=== PATIENT | female | born 1965 | race Hispanic/Latino ===

== ENCOUNTER 2017-10-03 09:51 | Emergency (ER) | payer SELFPAY ==
[2017-10-03] MEDS ORDERED: Cyclobenzaprine 10 MG TAB ONE (10:17)
[2017-10-03] MEDS ORDERED: Ketorolac Tromethamine 60 MG/2 ML VIAL ONE (10:17)
--- NOTE | 2017-10-03 13:01 | RAD ---
LEFT FOOT THREE VIEWS: INDICATIONS: Left foot pain. COMPARISON: None. FINDINGS: No acute fracture or subluxation is evident. A small accessory ossicle is seen adjacent to the navic jose and cuboid. Lisfranc alignment is preserved. IMPRESSION: No acute osseous abnormality. POS: [facility]
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
== END 2017-10-03 12:36 | disposition home or self-care (01) ==
LOC: ERS 09:51
DX: S20.212A Contusion of left front wall of thorax, initial encounter (principal); S90.32XA Contusion of left foot, initial encounter; S80.212A Abrasion, left knee, initial encounter; S90.512A Abrasion, left ankle, initial encounter; V43.52XA Car driver injured in collision with other type car in traffic accident, initial encounter
CPT/HCPCS: 71046; 96372; J1885

== ENCOUNTER 2018-09-23 10:02 | Outpatient (CLI) | payer OTHER ==
--- NOTE | 2018-09-23 11:26 | MMO ---
Bilateral MAMMO Bilat Screen DDI+JOVANNY. CLINICAL HISTORY: Patient is 53 years old and is seen for screening. The patient has no family history of breast cancer. The patient has no personal history of cancer. The patient has a history of Implants in 2000. VIEWS: The views performed were: bilateral craniocaudal with tomosynthesis and bilateral mediolateral oblique with tomosynthesis. MAMMOGRAM FINDINGS: The breasts are heterogeneously dense, which could obscure a lesion on mammography. Finding 1: Normal implants are present. Finding 2: There is a focal asymmetry seen in the sub-areolar region of the right breast. IMPRESSION: FINDING 1: IMPLANT FINDINGS IN BOTH BREASTS ARE BENIGN. FINDING 2: FOCAL ASYMMETRY IN THE RIGHT BREAST REQUIRES ADDITIONAL EVALUATION. AN ULTRASOUND EXAM IS RECOMMENDED. THE RESULTS OF THIS EXAM WERE SENT TO THE PATIENT. ACR BI-RADS Category 0 - Incomplete: Need additional imaging evaluation. [facility] will notify the patient of the need for additional imaging services. MAMMOGRAPHY NOTE: 1. A negative mammogram report should not delay a biopsy if a dominant of clinically suspicious mass is present. 2. Approximately 10% to 15% of breast cancers are not detected by mammography. 3. Adenosis and dense breasts may obscure an underlying neoplasm.
== END 2018-09-23 10:03 | disposition home or self-care (01) ==
LOC: BICMAMMO 10:02
PROVIDERS: ATTEND Nurse Practitioner Family
DX: Z12.31 Encounter for screening mammogram for malignant neoplasm of breast (principal); Z01.419 Encounter for gynecological examination (general) (routine) without abnormal findings; N64.89 Other specified disorders of breast; Z98.82 Breast implant status
CPT/HCPCS: 77063; 77067

== ENCOUNTER 2018-09-26 12:09 | Outpatient (CLI) | payer OTHER ==
--- NOTE | 2018-09-26 13:29 | MMO ---
Right Breast MAMMO Unilat Diag DDI RT+JOVANNY. CLINICAL HISTORY: Patient is 53 years old and is seen for diagnostic exam. The patient has no family history of breast cancer. The patient has no personal history of cancer. The patient has a history of Implants in 2000. VIEWS: The views performed were: right craniocaudal spot compression with tomosynthesis; right mediolateral oblique spot compression with tomosynthesis; right mediolateral; and right mediolateral spot compression with tomosynthesis. FILMS COMPARED: The present examination has been compared to a prior imaging study performed at [facility] on 09/23/2018. MAMMOGRAM FINDINGS: The breast is heterogeneously dense, which could obscure a lesion on mammography. There are benign appearing calcifications seen in the right breast. No evidence of mass or distortion on diagnostic exam with tomosynthesis. Recommend 6 month follow up to confirm stability. IMPRESSION: CALCIFICATIONS IN THE RIGHT BREAST ARE PROBABLY BENIGN. FOLLOW-UP IN 6 MONTHS IS RECOMMENDED. THE RESULTS OF THIS EXAM WERE SENT TO THE PATIENT. ACR BI-RADS Category 3 - Probably benign finding - short interval follow-up suggested. [facility] will notify the patient of the need for additional imaging services. MAMMOGRAPHY NOTE: 1. A negative mammogram report should not delay a biopsy if a dominant of clinically suspicious mass is present. 2. Approximately 10% to 15% of breast cancers are not detected by mammography. 3. Adenosis and dense breasts may obscure an underlying neoplasm.
== END 2018-09-26 12:10 | disposition home or self-care (01) ==
LOC: BICMAMMO 12:09
PROVIDERS: ATTEND Nurse Practitioner Family
DX: R92.2 Inconclusive mammogram (principal); R92.1 Mammographic calcification found on diagnostic imaging of breast; Z98.82 Breast implant status
CPT/HCPCS: G0279

== ENCOUNTER 2019-03-06 14:34 | Outpatient (CLI) | payer OTHER ==
--- NOTE | 2019-03-06 15:56 | MMO ---
Right Breast MAMMO Unilat Diag DDI RT+JOVANNY. CLINICAL HISTORY: Patient is 53 years old and is seen for follow-up at short-interval from prior study. The patient has no family history of breast cancer. The patient has no personal history of cancer. The patient has a history of Implants in 2000. VIEWS: The views performed were: right craniocaudal spot compression magnification; right mediolateral; right mediolateral spot compression magnification; right mediolateral with tomosynthesis; and right Implant displaced. FILMS COMPARED: The present examination has been compared to prior imaging studies performed at [facility] on 09/23/2018, 09/26/2018 and 03/06/2019. This study has been interpreted with the assistance of computer-aided detection. MAMMOGRAM FINDINGS: There are scattered fibroglandular densities. There is an oval mass measuring 17 millimeters with associated coarse popcorn-like calcifications seen in the anterior region of the right breast at 9 o'clock. Ultrasound shows solid mass. 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 IMPRESSION: MASS IN THE RIGHT BREAST IS PROBABLY BENIGN. FOLLOW-UP IN 6 MONTHS IS RECOMMENDED. THE RESULTS OF THIS EXAM WERE SENT TO THE PATIENT. ACR BI-RADS Category 3 - Probably benign finding - short interval follow-up suggested. [facility] will notify the patient of the need for additional imaging services. MAMMOGRAPHY NOTE: 1. A negative mammogram report should not delay a biopsy if a dominant of clinically suspicious mass is present. 2. Approximately 10% to 15% of breast cancers are not detected by mammography. 3. Adenosis and dense breasts may obscure an underlying neoplasm. Reported by: MARNI KINNEY MD Electonically Signed: [id number]
--- NOTE | 2019-03-06 15:59 | ULT ---
ULTRASOUND RIGHT BREAST LIMITED: 03/06/19 HISTORY: 53-year-old female with right breast mass. TECHNIQUE: Focused ultrasound of the 9 o'clock of the retroareolar region. FINDINGS: 1 cm from the nipple, at the 9 o'clock position, there is a wider than tall, mildly macrolobulated, h ypoechoic solid mass measuring approximately 2.1 x 0.7 x 2.1 cm. It contains a few macrocalcification s (best demonstrated on the mammogram), highly suggestive of a degenerating fibroadenoma. Ultrasound guided percutaneous biopsy may be risky because of the close proximity of the breast implant. The patient first presented for a bilateral screening mammogram on 09/23/18, when this mass was first d iscovered and described as an asymmetry. Additional mammographic views and ultrasound were recommende d at that time. However, an ultrasound was not performed at that time. Instead, additional views were performed, on . Benign calcification were noted within the asymmetry. Six month follow-up was recommended for the asymmetry. The current ultrasound is the first ultrasound of the right breast that the patient has had. IMPRESSION: 1. BIRADS 3: Probably Benign Finding Initial Short-Interval Follow-Up Suggested [Initial short-term follow up (usually 6-month) examination.] 2. An approximately 2 cm solid mass in the far anterior, periareolar right breast at the 9 o'nils ck position is highly likely to represent a fibroadenoma. 3. Recommend serial follow-up right mammograms and serial follow-up right breast ultrasounds at 6 months, one year, and two years. POS: [facility]
== END 2019-03-06 14:35 | disposition home or self-care (01) ==
LOC: BICMAMMO 14:34
PROVIDERS: ATTEND Internal Medicine Gastroenterology
DX: R92.8 Other abnormal and inconclusive findings on diagnostic imaging of breast (principal); N63.13 Unspecified lump in the right breast, lower outer quadrant
CPT/HCPCS: G0279

== ENCOUNTER 2019-09-03 13:33 | Outpatient (CLI) | payer OTHER ==
--- NOTE | 2019-09-03 15:18 | MMO ---
Bilateral MAMMO Bilat Diag DDI+JOVANNY. CLINICAL HISTORY: Patient is 54 years old and is seen for follow-up at short-interval from prior study. The patient has no family history of breast cancer. The patient has no personal history of cancer. The patient has a history of Implants in 2000. VIEWS: The views performed were: bilateral craniocaudal with tomosynthesis; bilateral mediolateral oblique with tomosynthesis; and bilateral mediolateral with tomosynthesis. FILMS COMPARED: The present examination has been compared to prior imaging studies performed at [facility] on 09/26/2018, 03/06/2019 and 09/03/2019. This study has been interpreted with the assistance of computer-aided detection. MAMMOGRAM FINDINGS: There are scattered fibroglandular densities. There is a stable lobular mass with associated coarse popcorn-like calcifications seen in the anterior region of the right breast at 9 o'clock. In the left breast, there are no suspicious masses, calcifications or areas of architectural distortion. IMPRESSION: STABLE MASS IN THE RIGHT BREAST IS PROBABLY BENIGN. FOLLOW-UP IN 6 MONTHS IS RECOMMENDED. THE RESULTS OF THIS EXAM WERE SENT TO THE PATIENT. ACR BI-RADS Category 3 - Probably benign finding - short interval follow-up suggested. [facility] will notify the patient of the need for additional imaging services. MAMMOGRAPHY NOTE: 1. A negative mammogram report should not delay a biopsy if a dominant of clinically suspicious mass is present. 2. Approximately 10% to 15% of breast cancers are not detected by mammography. 3. Adenosis and dense breasts may obscure an underlying neoplasm. Reported by: ANGELINE SANCHEZ MD Electonically Signed: [id number]
--- NOTE | 2019-09-03 18:15 | ULT ---
FOCUSED ULTRASOUND OF THE RIGHT BREAST: 09/03/19 COMPARISON: 03/06/19. HISTORY: Re-evaluate solid mass at the 9 o'clock position of the right breast. FINDINGS: Focused ultrasound at the 9 o'clock position of the right breast approximately 1 cm from the nipple a gain demonstrates a macrolobulated solid hypoechoic lesion with internal coarse calcification measuri ng 2.1 x 0.7 x 1.0 cm, unchanged when compared to the prior examination. Its sonographic and mammogra phic appearance are most consistent with a benign fibroadenoma. IMPRESSION: BIRADS 3: Probably Benign Finding Initial Short-Interval Follow-Up Suggested Initial short-term follow up (usually 6-month) examination. Recommend bilateral mammography and foc used breast ultrasound in 6 months, February 2020.
== END 2019-09-03 13:34 | disposition home or self-care (01) ==
LOC: BICMAMMO 13:33
PROVIDERS: ATTEND Nurse Practitioner Family
DX: R92.8 Other abnormal and inconclusive findings on diagnostic imaging of breast (principal); N63.10 Unspecified lump in the right breast, unspecified quadrant
CPT/HCPCS: 77066; G0279

== ENCOUNTER 2020-03-02 10:28 | Outpatient (CLI) | payer OTHER ==
--- NOTE | 2020-03-02 11:38 | MMO ---
Right Breast MAMMO Unilat Diag DDI RT+JOVANNY. CLINICAL HISTORY: Patient is 54 years old and is seen for follow-up at short-interval from prior study. The patient has no family history of breast cancer. The patient has no personal history of cancer. The patient has a history of Implants in 2000. VIEWS: The views performed were: right craniocaudal; right craniocaudal with tomosynthesis; right mediolateral oblique; right mediolateral oblique with tomosynthesis; right mediolateral; and right mediolateral with tomosynthesis. FILMS COMPARED: The present examination has been compared to prior imaging studies performed at [facility] on 03/06/2019, 09/03/2019 and 03/02/2020. This study has been interpreted with the assistance of computer-aided detection. MAMMOGRAM FINDINGS: There are scattered fibroglandular densities. There are benign appearing calcifications in the right breast. Mass with coarse calcs at 9:00 is stable and consistent with fibroadenoma. IMPRESSION: FINDING IN THE RIGHT BREAST IS PROBABLY BENIGN. FOLLOW-UP IN 6 MONTHS IS RECOMMENDED. THE RESULTS OF THIS EXAM WERE SENT TO THE PATIENT. ACR BI-RADS Category 3 - Probably benign finding - short interval follow-up suggested. [facility] will notify the patient of the need for additional imaging services. MAMMOGRAPHY NOTE: 1. A negative mammogram report should not delay a biopsy if a dominant of clinically suspicious mass is present. 2. Approximately 10% to 15% of breast cancers are not detected by mammography. 3. Adenosis and dense breasts may obscure an underlying neoplasm. Reported by: KAVON MIDDLETON MD Electonically Signed: [id number]
--- NOTE | 2020-03-02 18:47 | ULT ---
LIMITED RIGHT BREAST ULTRASOUND: 03/02/20 HISTORY: Follow-up exam. FINDINGS: Comparison is made with the ultrasound of 09/03/19 and correlation is made with the mammograms of gonzález hernandez and 09/03/19. Focused ultrasound of the 9 o'clock position of the right breast 1 cm from the nipple redemonstrates the macrolobulated solid hypoechoic mass with internal coarse calcifications which remains stable and measures 2.1 x 0.7 x 1 cm. This is consistent with a benign fibroadenoma. IMPRESSION: BIRADS 3: Probably Benign Finding Initial Short-Interval Follow-Up Suggested Initial short-term follow up (usually 6-month) examination. Six month follow-up ultrasound is recommended with diagnostic right mammogram and bilateral screening mammograms in August 2020. POS: [facility]
== END 2020-03-02 10:29 | disposition home or self-care (01) ==
LOC: BICMAMMO 10:28
PROVIDERS: ATTEND Nurse Practitioner Family
DX: R92.8 Other abnormal and inconclusive findings on diagnostic imaging of breast (principal)
CPT/HCPCS: G0279

== ENCOUNTER 2021-10-07 16:56 | Emergency (ER) | payer OTHER, SELFPAY ==
[2021-10-07 18:47] LABS: #Lymphocytes 0.8 thou/uL (1.20-3.40); #Monocytes 0.2 thou/uL (0.11-0.59); %Basophils 0.8 % (0.0-1.0); %Eosinophils 0.2 % (0.0-10.0); %Lymphocytes 20.3 % (21.0-51.0); %Neutrophils 74.7 % (42.0-75.0); Hemoglobin 12.4 g/dL (12.0-16.0); Mean Corpuscular Hemoglobin 31.6 pg (27.0-31.0); Mean Corpuscular Volume 92.9 fL (78.0-98.0); Platelet Count 164 thou/uL (130-400); RBC Distribution Width 10.6 % (11.5-14.5); Red Blood Cell (RBC) Count 3.93 mill/uL (4.20-5.40)
[2021-10-07 19:02] LABS: ALT (SGPT) 73 U/L (8-55); AST (SGOT) 72 U/L (5-34); Albumin 3.2 g/dL (3.5-5.0); Alkaline Phosphatase 245 U/L (40-110); Anion Gap 17 mmol/L (10-20); BUN (Urea Nitrogen) 10 mg/dL (9.8-20.1); Calc. Creatinine Clearance 0 mL/min (70-130); Calcium 7.9 mg/dL (7.8-10.44); Carbon Dioxide 15 mmol/L (22-29); Chloride 103 mmol/L (98-107); Estimated GFR 101; Globulin 2.8 g/dL (2.4-3.5); Glucose 103 mg/dL (70-105); Potassium 3.5 mmol/L (3.5-5.1); Sodium 131 mmol/L (136-145)
[2021-10-07 19:24] LABS: Bilirubin Negative (Negative); Blood, Urine Negative (Negative); Clarity Clear (Clear); Glucose, Urine (Dipstick) Normal (Negative); Ketone, Urine 10 mg/dL (Negative); Leukocyte Negative Leu/uL (Negative); Nitrite Negative (Negative); Protein, Urine (Dipstick) Negative (Neg-Trace); Urobilinogen Normal mg/dL (Less than 2); pH, Urine 6.5 (5.0-9.0)
== END 2021-10-07 20:27 | disposition home or self-care (01) ==
LOC: ERS 17:36
DX: R50.9 Fever, unspecified (principal); R52 Pain, unspecified; Z20.822 Contact with and (suspected) exposure to COVID-19
CPT/HCPCS: 36415; 71045; 80053; 81003; 85025; 87804; U0003; U0005

== ENCOUNTER 2021-11-07 13:50 | Outpatient (CLI) | payer OTHER | END 2021-11-07 13:51 | disposition home or self-care (01) | LOC: BICMAMMO 13:50 | PROVIDERS: ATTEND Nurse Practitioner Family | DX: R22.31 Localized swelling, mass and lump, right upper limb (principal) | CPT/HCPCS: 77066; G0279 ==